=== PATIENT | female | born 1995 | race Caucasian/White ===

== ENCOUNTER → 2021-08-25 13:21 | Outpatient (CLI) | payer OTHER, SELFPAY ==
--- NOTE | 2021-08-25 14:29 | XR_ITS ---
PROCEDURE: XR WRIST RT MIN 3V CLINICAL INDICATION: RT wrist paresthesia COMPARISON: No exams were available for comparison FINDINGS: Distal radius and ulna normal. The carpal bones are intact. There is no evidence of recent or old fracture. The soft tissues are normal. IMPRESSION: Negative right wrist Dictated by: Dr. Shabbir Ernst MD 08/25/2021 14:55 Dr. Shabbir Ernst MD in [place] 08/25/2021 14:55
== END ==
PROVIDERS: Visit Provider Orthopaedic Surgery
DX: M25.531 Pain in right wrist (principal)
CPT/HCPCS: 73110

== ENCOUNTER → 2021-12-06 21:22 | Outpatient (CLI) | payer OTHER, SELFPAY | PROVIDERS: Visit Provider Orthopaedic Surgery | DX: Z01.818 Encounter for other preprocedural examination (principal); U07.1 COVID-19; G56.03 Carpal tunnel syndrome, bilateral upper limbs | CPT/HCPCS: C9803; U0003; U0005 ==